=== PATIENT | male | born 1970 | race Caucasian/White ===

== ENCOUNTER → 2022-08-11 09:17 | Outpatient (BNVA) | payer OTHER, SELFPAY | PROVIDERS: Visit Provider Family Medicine | DX: Z00.00 Encounter for general adult medical examination without abnormal findings (principal); F32.A Depression, unspecified; F43.9 Reaction to severe stress, unspecified; Z13.6 Encounter for screening for cardiovascular disorders | CPT/HCPCS: 80053; 80061 ==

== ENCOUNTER 2023-11-27 10:14 | Emergency (ER) | payer OTHER, SELFPAY ==
[2023-11-27 10:32] VITALS: BP 136/86; PULSE 82; RESP 16; TEMP 36.6; O2SAT 97; BMI 32.3
--- NOTE | 2023-11-27 10:55 | XR_ITS ---
WS: [id number] Exam: XR hip LT 2-3V wo/w pel* [id number] Date/Time of Exam: 11/27/2023 11:32 AM Reason For Exam: pain No acute fracture or dislocation. Mild degenerative change of the acetabulum. The joint compartments relatively well-maintained. Normal soft tissues. IMPRESSION: 1. Mild degenerative change of the acetabulum. No fracture or other significant finding.
[2023-11-27 11:37] LABS: Basophils % 0.2 %; Eosinophils % 0.2 %; Hematocrit 43.9 % (37-53); Lymphocytes # 2.7 10^3/uL (0.8-4.8); Mean Corpuscular HGB Conc 33.3 g/dL (30-55); Mean Corpuscular Hemoglobin 30.7 pg (27-33); Mean Corpuscular Volume 92.2 fl (82-101); Mean Platelet Volume 10.2 fL (7.4-10.4); Monocytes # 1.6 10^3/uL (0.2-0.9); Monocytes % 12.1 %; Neutrophils # 9.01 10^3/uL (1.8-7.7); Neutrophils % 67.2 %; Nucleated Red Blood Cells % 0 %; Platelet Count 270 10^3/cmm (157-399); Red Blood Count 4.76 10^6/uL (3.85-5.65); Red Cell Distribution Width 12.3 % (12.1-15.1); White Blood Count 13.42 10^3/uL (3.29-11.43)
--- NOTE | 2023-11-27 11:46 | ED_ITS ---
HPI - Extremity Problem 2 General: Chief complaint: Extremity Injury, Lower Stated complaint: left hip pain Time Seen by Provider: 11/27/23 11:28 Source: patient Mode of arrival: ambulatory Limitations: no limitations History of Present Illness: Patient is a 53-year-old male who presents to ED today with a complaint of left lateral hip pain. Patient states a few days ago he woke up with pain in the lateral aspect of the left hip. Patient states he has had this previously and states it will normally work its way out in a day or so however this episode did not. Pain is worse with lying on affected side, getting from a seated to standing position, and bending over. He states he was seen by Dr. Barrientos yesterday and had the bursa injected. He reportedly was told there was some concern for a bone or joint infection at the time but states he wanted to give it overnight to see if the injection would work or not. He states he woke up this morning and symptoms were not improved. He does complain of some chills and some nausea. He is ambulatory on the joint without assistance. He has not noticed any redness or warmth. No fevers. He arrives to the ED with normal vital signs. No recent illness. No IV drug use. No immunocompromised status. No underlying hardware. MD Complaint: joint pain Onset (ago): day(s) Pain Consistency: constant Location: left and lower extremity Radiation: none Relieving factors: rest Exacerbating factors: range of motion and weight bearing Associated symptoms: Reports no associated symptoms; Deny chest pain, fever(s) or rash Review of Systems 2 Const: Reports: chills and night sweats; Denies: fever(s), body aches, fatigue or malaise Eyes: Denies: change in vision, blurry vision, photophobia, floaters or seeing flashes ENMT: Denies: throat pain, odynophagia, nasal discharge, nasal congestion or sinus pain Card: Denies: chest pain Resp: Denies: dyspnea GI: Reports: nausea; Denies: abdominal pain, vomiting or diarrhea : Denies: flank pain, difficulty urinating, dysuria, urinary frequency, urinary urgency or urinary hesitancy Musc: Reports: joint pain; Denies: neck pain, back pain, extremity pain, extremity swelling, joint swelling, joint redness or joint warmth Skin/Breast: Denies: rash Neuro: Denies: headache(s), numbness in extremities, weakness in extremities, sensory changes or difficulty walking PFSH ED 2 PFSH: Medical History Hx of anxiety disorder Hx of erectile dysfunction History of pyloric stenosis Social History Smoking and tobacco/nicotine status: never used tobacco/nicotine Alcohol intake: current Alcohol intake frequency: holidays/special occasions only Substance/Drug Use: never Adopted: No Household members: spouse Housing: House Marital status: Number of children: 4 Highest education level completed: High School Graduate service: No Current occupational status: employed Current gender identity: Male Physical Exam 2 Const: COMMON NORMALS: no acute distress, average body habitus, patient oriented x3, no limitations, healthy appearing, alert and well nourished G ENERAL APPEARANCE: cooperative ORIENTATION/CONSCIOUSNESS: Yes awake, Yes oriented to person, Yes oriented to place and Yes oriented to time Resp: COMMON NORMALS: normal respiratory effort and clear to auscultation bilaterally AUSCULTATION: clear to auscultation bilaterally Cardio: COMMON NORMALS: regular rate and regular rhythm RATE: regular rate RHYTHM: regular rhythm : COMMON NORMALS: Yes no CVA tenderness BLADDER/KIDNEY EXAM: Yes no CVA tenderness Back/Pelvis: COMMON NORMALS: no CVA tenderness and thoracic and lumbar spine normal to inspection Extremity: COMMON NORMALS: normal to inspection, capillary refill normal, no joint enlargement, no clubbing, cyanosis or edema, no calf tenderness and no pedal edema GENERAL: Yes normal exam except as noted LEFT LOWER EXTREMITY: Yes hip joint (TTP lateral hip; small injection site) Left hip: Yes inspection (no redness/warmth appreciated to bursa or overlying joint), Yes ROM (see below) and Yes neurovascular exam (normal) OTHER: patient can flex/extend hip joint against resistance, he can abduct/adduct extremity on his own although does note some lateral hip pain with these; internal/external rotation of hip again produces some minor tenderness to lateral hip joint; there is no part of his exam where pain is thought to be out of proportion to exam; NV intact Neuro: COMMON NORMALS: patient oriented x3, moves all extremities, no focal motor deficits, no sensory deficits noted and gait normal S ENSORIUM/ORIENTATION: Yes alert, Yes oriented to person, Yes oriented to place and Yes oriented to time Skin: COMMON NORMALS: no rashes or lesions noted GENERAL SKIN EXAM: no rashes or lesions noted TRAUMA: no lacerations or abrasions Course 2 Consultations: Consultation #1: Dr. Yap-agreed that clinical evaluation rules out a septic arthritis; recommended CT imaging with contrast to definitely rule out abscess or other abnormal fluid collection-if clear then treat for bursitis and follow up with PCP Vital Signs: Vital signs: Vital Signs Temperature 97.9 F 11/27/23 10:32 Pulse Rate 88 11/27/23 15:14 Respiratory Rate 16 11/27/23 10:32 Blood Pressure 139/82 11/27/23 15:14 Pulse Oximetry 98 11/27/23 15:14 Oxygen Delivery Me thod Room Air 11/27/23 10:32 MDM - Extremity (Nontraumatic) Medical Decision Making Patient here for left hip pain over the past few days. He has had some nausea and some chills. He was reportedly told there was some concern for a possible bone or joint infection . Patient was having symptoms prior to his bursa being injected by Dr. Barrientos. There is no redness or warmth to the joint. He has fairly good range of motion and pain is not out of proportion to exam. Clinically have zero concern for septic arthritis. He is not tachycardic or febrile. He has a minor white count of 13.4. His ESR is normal. CRP is elevated at 75.4. Case reviewed by Dr. Yap who agrees that clinically we can rule out a septic joint. XR is normal. I do not have any concern for an osteonecrosis. Clinically this patient has a trochanter bursitis. Unlikely a septic bursitis as there is no redness or warmth overlying the bursa. CT scan of the hip showing no effusion or abnormal enhancement of the hip. He does have minimal soft tissue inflammation to the region of the greater trochanter with correlation for some trochanteric bursitis. He was given steroids and anti- inflammatories here and will be placed on these medications at home. He can follow-up with primary care. Return ED precautions given. Medical Records I reviewed the patient's medical records. Lab Data I reviewed the patient's lab results. 11/27/23 11:18 11/27/23 11:18 Laboratory Results WBC 13.42 10^3/uL (3.29-11.43) H 11/27/23 11:18 RBC 4.76 10^6/uL (3.85-5.65) 11/27/23 11:18 Hgb 14.60 g/dL (11.27-16.99) 11/27/23 11:18 Hct 43.9 % (37-53) 11/27/23 11:18 MCV 92.2 fl (82-101) 11/27/23 11:18 MCH 30.7 pg (27-33) 11/27/23 11:18 MCHC 33.3 g/dL (30-55) 11/27/23 11:18 RDW 12.3 % (12.1-15.1) 11/27/23 11:18 Plt Count 270 10^3/cmm (157-399) 11/27/23 11:18 MPV 10.2 fL (7.4-10.4) 11/27/23 11:18 Neut % (Auto) 67.2 % 11/27/23 11:18 Lymph % (Auto) 20.0 % 11/27/23 11:18 [place] % (Auto) 12.1 % 11/27/23 11:18 Eos % (Auto) 0.2 % 11/27/23 11:18 Baso % (Auto) 0.2 % 11/27/23 11:18 Neut # (Auto) 9.01 10^3/uL (1.8-7.7) H 11/27/23 11:18 Lymph # (Auto) 2.7 10^3/uL (0.8-4.8) 11/27/23 11:18 [place] # (Auto) 1.6 10^3/uL (0.2-0.9) H 11/27/23 11:18 Eos # (Auto) 0.0 10^3/uL (0.0-0.8) 11/27/23 11:18 Baso # (Auto) 0.0 10^3/uL (0.0-0.1) 11/27/23 11:18 Nucleated RBC % (auto) 0 % 11/27/23 11:18 Nucleated RBCs # 0.0 /100WBC 11/27/23 11:18 ESR 4 mm/hr (0-10) 11/27/23 11:18 Sodium 138 mmol/L (136-145) 11/27/23 11:18 Potassium 4.5 mmol/L (3.5-5.1) 11/27/23 11:18 Chloride 100 mmol/L (98-107) 11/27/23 11:18 Carbon Dioxide 27 mmol/L (22-29) 11/27/23 11:18 Anion Gap 15.5 (5-19) 11/27/23 11:18 BUN 18 mg/dL (6-20) 11/27/23 11:18 Creatinine 1.2 mg/dL (0.7-1.2) 11/27/23 11:18 GFR Calculation 63.1 mL/min (90-130) L 11/27/23 11:18 Glucose 107 mg/dL (65-115) 11/27/23 11:18 Calculated Osmolality 288 mOsm/kg (285-295) 11/27/23 11:18 Calcium 10.1 mg/dL (8.5-10.5) 11/27/23 11:18 Total Bilirubin 0.6 mg/dL (0.15-1.2) 11/27/23 11:18 AST 18 U/L (0-40) 11/27/23 11:18 ALT 19 U/L (0-41) 11/27/23 11:18 Alkaline Phosphatase 75 U/L (40-130) 11/27/23 11:18 C-Reactive Protein 75.4 mg/L (0.0-4.9) H 11/27/23 11:18 Total Protein 7.7 g/dL (6.6-8.7) 11/27/23 11:18 Albumin 4.2 g/dL (3.5-5.2) 11/27/23 11:18 Globulin 3.5 g/dL (1.3-4.6) 11/27/23 11:18 All radiology interpretation(s) finalized by discharge Discharge Plan Discharge Patient Disposition: Home Clinical Impression: Greater trochanteric bursitis of left hip Condition: Stable Prescriptions: New prednisone 10 mg tablet 10 mg PO DAILY 7 Days Qty: 27 0RF Rx Instructions: 6 tabs on days 1-2, 5 tabs on days 3, 4 tabs on day 4, 3 tabs on day 5, 2 tabs on day 6, 1 tab on day 7 ibuprofen 800 mg tablet 800 mg PO Q8H PRN (Reason: pain) Qty: 20 0RF No Action sildenafil 100 mg tablet 100 mg PO ONCE Qty: 30 5RF Rx Instructions: use prior to sexual activity fluoxetine [Prozac] 40 mg capsule 40 mg PO DAILY Qty: 90 1RF alprazolam 1 mg tablet 1 mg PO DAILY Qty: 30 5RF Discharge Orders: Discharge ED (Routine); Ordered 11/27/23 Ordered By: Annel Ann Referrals: Alan Case DO [Primary Care Provider] - Patient Instructions: Hip Bursitis (ED) Coding Level of Care Code ED Pharmacist In Charge Owner for Rick Aguirre
[2023-11-27 11:54] LABS: Erythrocyte Sedimentation Rate 4 mm/hr (0-10)
[2023-11-27 11:55] LABS: Alanine Aminotransferase 19 U/L (0-41); Albumin Level 4.2 g/dL (3.5-5.2); Alkaline Phosphatase 75 U/L (40-130); Anion Gap 15.5 (5-19); Aspartate Amino Transferase 18 U/L (0-40); Blood Urea Nitrogen 18 mg/dL (6-20); C Reactive Protein 75.4 mg/L (0.0-4.9); Calcium 10.1 mg/dL (8.5-10.5); Carbon Dioxide 27 mmol/L (22-29); Chloride 100 mmol/L (98-107); Creatinine Clr Calc Pharmacy 89.3265; Globulin 3.5 g/dL (1.3-4.6); Glomerular Filtration Rate 63.1 mL/min (90-130); Glucose 107 mg/dL (65-115); Osmolality Calculated 288 mOsm/kg (285-295); Potassium 4.5 mmol/L (3.5-5.1); Sodium 138 mmol/L (136-145); Total Bilirubin 0.6 mg/dL (0.15-1.2); Total Protein 7.7 g/dL (6.6-8.7)
--- NOTE | 2023-11-27 12:52 | CT_ITS ---
WS: [id number] CT LEFT HIP, POST CONTRAST HISTORY: pain, elevated inflammatory marker Technique: All CT scans at [facility] use at least one of these dose optimization techniques: automated exposure control; mA and/or kV adjustment per patient size (includes targeted exams where dose is matched to clinical indication); or iterative reconstruction. DLP: 581.71 mGy.cm COMPARISON: Radiographs 11/27/2023 No fractures or destructive bone lesions. There is mild cortical irregularity and a small osteophyte along the medial femoral head extending into the acetabulum. There are no soft tissue masses or absce sses. No joint effusion. Very mild soft tissue inflammation in the region of the greater trochanter. Focal calcification measures 1.4 cm embedded in the quadratus femoris muscle and tendon posterior to the proximal femur. This can be seen with prior trauma or calcific tendinitis. No donor site from the bone is identified. No soft tissue inflammation within the adjacent fat. IMPRESSION: 1. No fracture. 2. No joint effusion or abnormal enhancement at the LEFT hip. CT is insensitive examination as briseyda red to MRI for joint infection. 3. Very minimal soft tissue inflammation but no abscess in the region of the greater trochanter. Cor relate for subtrochanteric bursitis. 4. Focal calcification posterior to the proximal LEFT femur embedded in the quadriceps Dennis muscle and tendon. Typically seen with calcific tendinitis or prior tendon tear.
[2023-11-27] MEDS: iohexol 350 mg/mL 500 mL Btl (per mL) IV (13:46)
[2023-11-27] MEDS: dexamethasone 10 mg/mL INJ IVP (15:03)
[2023-11-27] MEDS: ketorolac 30 mg/mL INJ IVP (15:07)
[2023-11-27 15:14] VITALS: BP 139/82; PULSE 88; O2SAT 98
== END 2023-11-27 15:15 | disposition home or self-care (01) ==
PROVIDERS: Emergency Medicine; Emergency Provider Physician Assistant; PCP Family Medicine
DX: M70.62 Trochanteric bursitis, left hip (principal)
CPT/HCPCS: 36415; 73502; 73701; 80053; 85025; 85651; 86140; 96374; 96375; 99285; J1100; J1885; Q9967

== ENCOUNTER → 2024-08-11 09:04 | Outpatient (BNVA) | payer OTHER, SELFPAY | PROVIDERS: PCP Family Medicine; Visit Provider Family Medicine | DX: Z00.00 Encounter for general adult medical examination without abnormal findings (principal); K62.5 Hemorrhage of anus and rectum; F32.A Depression, unspecified; F43.9 Reaction to severe stress, unspecified | CPT/HCPCS: 80053; 80061; 85025 ==

== ENCOUNTER 2024-09-10 05:57 | Day surgery (SDC) | payer OTHER, SELFPAY ==
--- NOTE | 2024-09-10 05:52 | ANES.PREANE2 ---
Pre-Anesthetic Assessment Height/Weight: Height 6 ft Preop Diagnosis: Concern for GI bleeding Operation Date: 09/10/24 07:00 Proposed Procedures p Colonoscopy 79241, G0105, 58562, K92.2(Not Applicable) - Mark Hair DO s EGD(Not Applicable) - Mark Hair DO Was Beta Luis taken within 24 hours: N/A Was Clonidine taken within 24 hours: N/A Anesthetic Plan ASA status: 2 Anesthesia: MAC Other: Patient has had concern for blood in stool for the last few months No prior issues with anesthesia Completed bowel prep Denies any cardiac or pulmonary issues METs greater than 4 Plan for MAC anesthetic Medications/Allergies Home Medications Medication Instructions Recorded Confirmed Last Taken Type ibuprofen 800 mg tablet 800 mg PO Q8H PRN pain #20 tabs 11/27/23 09/08/24 09/04/24 Rx alprazolam 1 mg tablet 1 mg PO DAILY #30 tabs 03/24/24 09/08/24 09/07/24 Rx fluoxetine 40 mg capsule (Prozac) 40 mg PO DAILY #90 caps 03/24/24 09/08/24 09/08/24 Rx sildenafil 100 mg tablet 100 mg PO ONCE #30 tabs 08/11/24 09/08/24 1 Week Ago Rx ~09/01/24 Allergies Allergy/AdvReac Type Severity Reaction Status Date / Time No Known Allergies Allergy Verified 08/15/24 10:45 PFSH Anesthesia Medical History Hx of anxiety disorder Hx of erectile dysfunction History of pyloric stenosis Social History Smoking and tobacco/nicotine status: never used tobacco/nicotine Alcohol intake: current Alcohol intake frequency: holidays/special occasions only Substance/Drug Use: never Adopted: No Household members: spouse Housing: House Marital status: Number of children: 4 Highest education level completed: High School Graduate service: No Current occupational status: employed Current gender identity: Male Data Anesthesia Cardiac Studies: No Data to Display
[2024-09-10 06:14] VITALS: BP 168/107; PULSE 61; RESP 18; TEMP 36.6; O2SAT 99; BMI 31.8
[2024-09-10] MEDS: sodium chloride 0.9% 500 ML 15 ML IV (06:23)
--- NOTE | 2024-09-10 06:41 | W.PM.OPSUD ---
Surgery/Procedure H&P Update DATE OF PROCEDURE: September 10, 2024 DATE H&P PERFORMED: 08/15/24 H&P UPDATE INFORMATION: I have reviewed H&P completed within last 30 days, I have examined patient prior to procedure and No changes to prior documentation PREOP DIAGNOSIS: Concern for GI bleeding PLANNED PROCEDURE: Operation Date: 09/10/24 07:00 Proposed Procedures p Colonoscopy 27041, G0105, 68144, K92.2(Not Applicable) - DO dang Thompson EGD(Not Applicable) - Mark Hair DO
[2024-09-10 07:30] VITALS: BP 134/83; PULSE 58; RESP 20; TEMP 36.4; O2SAT 99
[2024-09-10] MEDS: ondansetron 2 mg/ML SDV 2 mL 4 MG IVP (07:44)
[2024-09-10 08:27] VITALS: BP 139/67; PULSE 59; RESP 16; O2SAT 98
--- NOTE | 2024-09-10 08:28 | PC.NURSE ---
Unable to obtain VS within 30 minutes due to pt sitting on toilet during timeframe.
--- NOTE | 2024-09-10 08:40 | ANE.PACU2 ---
Inpatient post-anesthesia follow up: Airway intact: Yes Vital signs: Temperature 97.5 F Pulse Rate 59 Respiratory Rate 16 Blood Pressure 139/67 Pulse Oximetry 98 Oxygen Delivery Me thod Room Air Oxygen Flow Rate 4 Fraction of Inspir ed Oxygen Hydration adequate: Yes Nausea and vomiting: No Pain level: 1 Mental status: Baseline
== END 2024-09-10 08:40 | disposition home or self-care (01) ==
PROVIDERS: PCP Family Medicine; Visit Provider Surgery
PROC: 0DJD8ZZ Inspection of Lower Intestinal Tract, Via Natural or Artificial Opening Endoscopic (ICD-10-PCS; CPT 45378; principal; 2024-09-10 07:00)
PROC: 0DJ08ZZ Inspection of Upper Intestinal Tract, Via Natural or Artificial Opening Endoscopic (ICD-10-PCS; CPT 43235; 2024-09-10 07:00)
DX: K92.1 Melena (principal); D12.5 Benign neoplasm of sigmoid colon; K64.8 Other hemorrhoids; K21.00 Gastro-esophageal reflux disease with esophagitis, without bleeding
CPT/HCPCS: 43239; 45385; 88305; J2405; J2704; J7040